=== PATIENT | male | born 1955 | race Caucasian/White ===

== ENCOUNTER 2020-09-02 08:54 | Outpatient (REF) | payer MEDICARE, SELFPAY ==
--- OUTSIDE RECORDS SUMMARY | 2020-09-02 09:04 | XMS_ITS ---
:1955 Author Allergies None recorded. Medications None recorded. Problems None recorded. Procedures None recorded. Results Lab Results None recorded. Past Encounters None recorded. Social History None recorded. Vaccine List Vaccine Type COVID-19, mRNA, LNP-S, PF, 100 mcg/0.5 m L dose 05/05/2020?0.5 mL 06/02/2020?100 mcg Plan of Care Reminders Provider Appointments None ? ? recorded. Lab None ? ? recorded. Referral None ? ? recorded. Procedures None ? ? recorded. Surgeries None ? ? recorded. Imaging None ? ? recorded. Vitals None recorded.
[2020-09-02 12:57] LABS: Hemoglobin A1C 5.6 % (<5.7)
[2020-09-02 12:58] LABS: ALT 17 U/L (16-63); AST 11 U/L (15-37); Albumin 3.8 g/dL (3.4-5.0); Alkaline Phosphatase 46 U/L (46-116); Anion Gap 9.4 mmol/L (3-11); BUN 18 mg/dL (7-18); Bilirubin, Total 0.7 mg/dL (0.2-1.0); CO2 24.6 mmol/L (21.0-32.0); CREATININE 0.9 mg/dL (0.70-1.30); Calcium 8.5 mg/dL (8.5-10.1); Calculated LDL 105 mg/dL (<100); Chloride 104 mmol/L (98-107); Cholesterol 163 mg/dL (<200); Glucose 105 mg/dL (74-106); HDL Cholesterol 46 mg/dL (40-60); Potassium 4.8 mmol/L (3.5-5.1); Sodium 138 mmol/L (136-145); Total Protein 6.5 g/dL (6.4-8.2); Triglyceride 63 mg/dL (<150)
[2020-09-02 21:54] LABS: PSA, Screening 0.9 ng/mL (0.0-4.5)
== END 2020-09-02 08:55 | disposition home or self-care (01) ==
LOC: LBN 08:54
PROVIDERS: PCP Nurse Practitioner Family; Visit Provider Nurse Practitioner Family
DX: R00.1 Bradycardia, unspecified (principal); M25.551 Pain in right hip; E78.89 Other lipoprotein metabolism disorders; R79.89 Other specified abnormal findings of blood chemistry; Z12.5 Encounter for screening for malignant neoplasm of prostate; Z00.00 Encounter for general adult medical examination without abnormal findings
CPT/HCPCS: 80053; 80061; 84153; 83036

== ENCOUNTER 2021-11-08 09:38 | Outpatient (CLI) | payer MEDICARE, SELFPAY ==
[2021-11-08 12:18] LABS: Abs Immature Grans 0.06 10^3/uL (0.0-0.06); Absolute Basophil Count 0.09 10^3/uL (0.0-0.2); Absolute Lymphocyte Count 2.02 10^3/uL (1.2-3.4); Basophils % 0.8; Eosinophils % 1.5; HCT 39.4 % (40.0-50.0); HGB 13.3 g/dL (13.5-17.5); Immature Grans % 0.5; Lymphocytes % 17.3; MCH 29.4 pg (27.0-33.0); MCHC 33.8 % (32.0-36.0); MCV 87 fL (80-95); MPV 9.7 fL (8.0-11.0); Monocytes % 8.6; Neutrophils % 71.3; Platelet Count 340 10^3/uL (130-400); RBC 4.52 10^6/uL (4.36-5.78); RDW 12.9 % (11.8-14.1); RDW-SD 41.1 fL; WBC 11.69 10^3/uL (4.4-10.8)
[2021-11-08 12:20] LABS: ESR 18 mm/hr (0-20)
[2021-11-08 12:22] LABS: Absolute Eosinophil Count 0.18 10^3/uL (0.0-0.7); Absolute Monocyte Count 1.01 10^3/uL (0.1-0.8); Absolute Neutrophil Count 8.33 10^3/uL (1.2-6.7)
[2021-11-08 12:28] LABS: C-Reactive Protein 21.73 mg/dL (0.0-0.3)
[2021-11-09 10:45] LABS: Lyme Ab w Rflx to Lyme Confirm Negative (Negative)
== END 2021-11-08 09:39 | disposition home or self-care (01) ==
LOC: LOS 09:39
PROVIDERS: PCP Nurse Practitioner Family; Visit Provider Family Medicine
DX: M25.50 Pain in unspecified joint (principal); R41.89 Other symptoms and signs involving cognitive functions and awareness; D64.9 Anemia, unspecified
CPT/HCPCS: 36415; 85652; 85025; 86140; 86618

== ENCOUNTER → 2021-11-09 14:12 | Outpatient (CLI) | payer MEDICARE, SELFPAY ==
--- NOTE | 2021-11-09 13:45 | DI.RAD_ITS ---
Exam(s) XR HIP RT COMPLETE AP PELVIS EXAM: XR HIP RT COMPLETE AP PELVIS CLINICAL HISTORY: rt hip pain M25.551. TECHNIQUE: 2D digital imaging was performed of the right hip. Three images were obtained. AP pelvis and lateral right hip views were obtained. COMPARISON: No exams were available for comparison FINDINGS: BONES: No acute fracture is present. No bony destructive lesion is seen. JOINTS: No dislocation present. Marked narrowing of the superior joint space of the right hip is note d. Mild subchondral sclerosis is seen on both sides of the right hip joint. There is mild spurring of the femoral head. SOFT TISSUE: Normal. IMPRESSION: Osteoarthritis of the right hip. DATA REPOSITORY: RADIATION DOSE DELIVERED:
== END ==
PROVIDERS: PCP Nurse Practitioner Family; Visit Provider Family Medicine
DX: M25.551 Pain in right hip (principal); M16.11 Unilateral primary osteoarthritis, right hip
CPT/HCPCS: 73502

== ENCOUNTER 2021-11-11 17:45 | Emergency (ER) | payer MEDICARE, SELFPAY ==
[2021-11-11 17:52] VITALS: BP 147/80; PULSE 64; RESP 20; TEMP 36.6; O2SAT 99
[2021-11-11 19:15] LABS: ESR 36 mm/hr (0-20)
[2021-11-11 19:18] LABS: Abs Immature Grans 0.06 10^3/uL (0.0-0.06); Absolute Basophil Count 0.09 10^3/uL (0.0-0.2); Absolute Eosinophil Count 0.17 10^3/uL (0.0-0.7); Absolute Lymphocyte Count 2.68 10^3/uL (1.2-3.4); Absolute Monocyte Count 0.85 10^3/uL (0.1-0.8); Absolute Neutrophil Count 5.03 10^3/uL (1.2-6.7); Eosinophils % 1.9; HCT 38.9 % (40.0-50.0); HGB 13.4 g/dL (13.5-17.5); Immature Grans % 0.7; Lymphocytes % 30.2; MCH 29.8 pg (27.0-33.0); MCHC 34.4 % (32.0-36.0); MCV 87 fL (80-95); MPV 8.8 fL (8.0-11.0); Monocytes % 9.6; Neutrophils % 56.6; Platelet Count 419 10^3/uL (130-400); RBC 4.49 10^6/uL (4.36-5.78); RDW 12.7 % (11.8-14.1); RDW-SD 40.4 fL; WBC 8.88 10^3/uL (4.4-10.8)
--- NOTE | 2021-11-11 19:24 | DI.CT_ITS ---
Exam(s) CT LOWER EXTREMITY RT WO EXAM: CT LOWER EXTREMITY RT WO CLINICAL HISTORY: hip pain, question septic hip/effusion?. TECHNIQUE: Imaging Protocol: Axial computed tomography images with coronal and sagittal reformatted images were created and reviewed. CONTRAST MATERIAL: None COMPARISON: CR XR HIP RT COMPLETE AP PELVIS from 11/09/2021 FINDINGS: OSSEOUS/ARTICULATION: No acute fractures evident. However, there are advanced osteoarthritic degener ative changes in the hip joint. Also prominent degenerative subarticular cyst in the anterosuperior acetabulum, this measuring approximately 1.7 by 1.4 cm. 7 x 7 millimeter degenerative subarticular c yst or possible synovial pit is seen in the anterior aspect of the femoral head. SOFT TISSUES: no joint effusion but there is fluid distending the ipsilateral psoas bursa. IMPRESSION: 1. Advanced degenerative change in the hip joint. No hip joint region fracture nor dislocation. 2. Fluid-filled iliopsoas bursa, either related to bursitis or abscess. RADIATION DOSE DELIVERED: 280.9mGy.cm Total DLP DATA REPOSITORY: All CT scans at this facility are submitted to the National Radiology Data Registry (NRDR) Dose Index Registry (DIR) with the [employer] (ACR). RADIATION OPTIMIZATION: All CT scans at this facility use at least one of these dose optimization te chniques: automated exposure control; mA and/or kV adjustment per patient size (includes targeted exa ms where dose is matched to clinical indication); or iterative reconstruction.
[2021-11-11 19:31] LABS: ALT 20 U/L (16-63); AST 15 U/L (15-37); Albumin 3.3 g/dL (3.4-5.0); Alkaline Phosphatase 101 U/L (46-116); Anion Gap 6.9 mmol/L (3-11); BUN 18 mg/dL (7-18); Bilirubin, Total 0.4 mg/dL (0.2-1.0); C-Reactive Protein 7.26 mg/dL (0.0-0.3); CO2 27.1 mmol/L (21.0-32.0); CREATININE 0.9 mg/dL (0.70-1.30); Calcium 8.6 mg/dL (8.5-10.1); Chloride 100 mmol/L (98-107); Estimated GFR 93.61 (mL/min/1.73m2); Glucose 93 mg/dL (74-106); Potassium 3.7 mmol/L (3.5-5.1); Sodium 134 mmol/L (136-145); Total Protein 7.7 g/dL (6.4-8.2)
--- NOTE | 2021-11-11 20:59 | DI.VRAD_ITS ---
Addendum created by Kely Fernández MD on 11/11/2021 9:02:31 PM EDT: THIS REPORT CONTAINS FINDINGS THAT MAY BE CRITICAL TO PATIENT CARE. The findings were verbally communicated via telephone conference with Sri Oropeza at 9:02 PM EDT on 11/11/2021. The findings were acknowledged and understood. An MRI with and without contrast was recommended. Initial report created on 11/11/2021 8:59:23 PM EDT: PROCEDURE INFORMATION: Exam: CT Right Lower Extremity Without Contrast, Hip Exam date and time: 11/11/2021 8:11 PM Age: 66 years old Clinical indication: Right; Patient HX: R hip pain, no trauma, question septic hip/effusion? TECHNIQUE: Imaging protocol: CT of the Right lower extremity without contrast was performed. Exam focused on the hip. Radiation optimization: All CT scans at this facility use at least one of these dose optimization techniques: automated exposure control; mA and/or kV adjustment per patient size (includes targeted exams where dose is matched to clinical indication); or iterative reconstruction. COMPARISON: CR XR HIP RT COMPLETE AP PELVIS 11/09/2021 3:15 PM FINDINGS: Bones/joints: No acute fracture identified. There are degenerative changes to the right hip with corresponding joint space narrowing, sclerosis, osteophytosis, and subchondral cyst formation. In some locations, there is bone on bone. Soft tissues: There are vascular calcifications. There appears to be a joint effusion communicating with the iliopsoas bursa on image 55 of series 3. Infected effusion is not excluded. Abscess is not excluded. An MRI with contrast would be beneficial for further evaluation. IMPRESSION: 1. No acute fracture or dislocation identified. 2. There appears to be a joint effusion communicating with the iliopsoas bursa on image 55 of series 3. Infected effusion is not excluded. Abscess is not excluded. An MRI with contrast would be beneficial for further evaluation. 3. Severe degenerative changes to the right hip as described. Other findings/details as above. Dictated and Authenticated by: Kely Fernández MD. Ordering:DEMETRIO Fierro MD
[2021-11-11 21:04] VITALS: BP 130/86; PULSE 61; RESP 18; TEMP 36.8; O2SAT 97
[2021-11-11 21:46] VITALS: BP 139/93; PULSE 66; RESP 16; TEMP 36.6; O2SAT 98
[2021-11-11] MEDS: Ketorolac 15 MG/ML VIAL IVP (22:01)
--- NOTE | 2021-11-11 22:29 | NUR.NOTE ---
Referral faxed to [facility] Josh Blackburn to f/u 11/14/21 for hip effusion.Nursing Note:
[2021-11-14 10:50] LABS: Lyme Ab w Rflx to Lyme Confirm Negative (Negative)
--- NOTE | 2021-11-14 22:01 | W.ED.GENAD ---
Discharge Plan Disposition Patient Disposition: HOME Condition: Stable Discharge Details Clinical Impression: Arthralgia, Effusion of hip Primary Care Provider: Josh Blackburn ED Provider: Sri Oropeza Home Meds and New Rx's Prescriptions: Continued prednisone 20 mg tablet 40 mg PO DAILY Qty: 10 0RF acetaminophen [Acetaminophen Extra Strength] 500 MG tablet 500 mg PO Q6H PRN PRNQty: 90 0RF ibuprofen 600 MG tablet 600 mg PO TID PRN PRNQty: 90 0RF Discharge Instructions Additional Instructions: Take Tylenol 650 mg every 4-6 hours as needed for pain Take the prednisone as prescribed by your doctor Follow-up with your PCP on Sunday and return here should you have fever over 100.4, worsening pain, or should he have new or worsening complaint You will need close outpatient reassessment Referrals: Josh Blackburn TEACHER ASST [Primary Care Provider] - Randall Gayle MD [ [facility]] - Discharge Data Discharge Date/Time-TO BE ENTERED AT DEPARTURE: 11/11/21 22:22 Medical Decision Making On CT scan, patient does have an effusion However CRP is improving and no leukocytosis and afebrile Patient is ambulatory with antalgic, steady gait Case was discussed with Dr. Gayle, on-call orthopedist his recommendations are supportive therapy with close outpatient reassessment with his PCP on Sunday At this time he sees no clear indication for arthrocentesis Patient is fairly afebrile and nontoxic My suspicion that this is septic arthritis is quite low I think the patient has viral syndrome with underlying osteoarthritis in the affected hip Similar very low threshold to return should you have new or worsening complaints and will need recheck in 24 to 48 hours Medical Records Medical records reviewed: Yes I reviewed the patient's medical records. Lab Data Lab results reviewed: Yes I reviewed the patient's lab results. HPI General Date/Time Provider Initiated Documentation: 11/11/21 17:47. HPI Narrative: This 66-year-old gentleman presents with fevers, night sweats, lymphadenopathy Progressed to swelling and pain in both arms then spreading to right hip. This is been going on for approximately 3 weeks. Denies IV drug abuse. Denies any known tick bites. He has not had a fever for the past 24 hours reportedly. He states that his right hip as his pain is exacerbated with walking. He denies any known sick contacts. He has had problems with his hip reportedly in the past. Denies rashes or lesions. Denies any falls or injuries. Describes the pain as sharp. Related Data Home Medications Medication Instructions Recorded Confirmed acetaminophen 500 mg tablet 500 mg PO Q6H PRN PRN #90 tabs 09/28/17 11/11/21 (Acetaminophen Extra Strength) ibuprofen 600 mg tablet 600 mg PO TID PRN PRN #90 tabs 09/28/17 11/11/21 prednisone 20 mg tablet 40 mg PO DAILY #10 tabs 11/09/21 11/11/21 Previous Rx's Medication Instructions Recorded acetaminophen 500 mg tablet 500 mg PO Q6H PRN PRN #90 tabs 09/28/17 (Acetaminophen Extra Strength) ibuprofen 600 mg tablet 600 mg PO TID PRN PRN #90 tabs 09/28/17 prednisone 20 mg tablet 40 mg PO DAILY #10 tabs 11/09/21 Allergies Allergy/AdvReac Type Severity Reaction Status Date / Time No Known Allergies Allergy Verified 11/11/21 17:56 General Stated Complaint: [facility] YARELI: 3 Review of Systems Narrative: Review of systems obtained x7 and negative aside from indication PFSH All Active Problems (Updated 11/11/21 @ 22:00 by NUVIA Rosa) Effusion of hip (Acute) Arthralgia (Acute) Right hip pain (Acute) Bradycardia with 51-60 beats per minute (Chronic) I do believe that this is his normal. Gastroesophageal reflux disease with esophagitis (Acute 01/14/16) Diverticulosis (Acute 11/24/13) [facility] [place] Contracture of joint of left hand (Acute 01/14/16) Medical History Flexor tendon laceration of left hand with open wound (09/26/17) Rupture of popliteal cyst of right knee region Surgical History Colonoscopy - [facility] [place] 11/24/13; [facility] [place] Family History Mother , 87 Essential hypertension Hyperlipidemia Father Neoplasm LUNG Sister Diabetes Hyperlipidemia Brother Essential hypertension Hyperlipidemia Maternal Grandfather , 58 Lung cancer Maternal Grandmother , 72 Stroke Sister Alcohol abuse Depression Social History Smoking/Tobacco Use Status: Former Tobacco Use tobacco type: cigarettes Quit Date: 03/05/84 Tobacco: How many years used: 5 Second Hand Exposure: Yes Smoking risk assessment performed?: Yes Alcohol Intake: current Alcohol Intake frequency: holidays/special occasions only Drug use: Never Caregiver/Support person: No Household members: spouse Housing: house Communication Needs: Corrective Lenses Do you need help understanding health information?: Rarely Pets and animals: No Sexually active: Yes Do you think of yourself as: straight/heterosexual Current gender identity: male What is your relationship status?: How often do you talk on the phone with friends or family?: three or more times per week How often do you get together with friends or relatives?: once per week How often do you attend jew or bahai services?: decline to answer Do you belong to any clubs or organized social groups?: no Panel score (0-1 are the most socially isolated patients): 2 What type of physical activity do you participate in: walking and other Details: Hiking Duration: 45-60 minutes/day Frequency: 3-4 times per week Special geovanna needs: No Seatbelt use: always Helmet use: Yes Helmet use: sometimes Drive intox or ride w/intox 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 Do you feel safe in your relationship?: Yes Exam Const General: cooperative, comfortable and no acute distress HENMT Head: normal to inspection Eyes Sclera: sclerae normal Neck Other: No meningismus Resp Effort & Inspection: normal respiratory effort Auscultation: clear to auscultation bilaterally Cardio Rate: regular rate Rhythm: regular rhythm Other: Distal pulses intact GI Other: Nontender abdominal exam Skin General skin exam: no rashes or lesions noted Neuro General: patient alert and patient oriented x3 Cognition: normal cognition Speech: speech normal Gait: normal gait Sensory Exam: no sensory deficits noted Extrem Other: Right hip with tenderness to palpation and with abduction and internal rotation, no swelling or rashes or lesions appreciated Neurovascularly intact Course Vital Signs Vital signs: Vital Signs Temperature 36.6 C 11/11/21 17:52 Pulse 64 11/11/21 17:52 Respiratory Rate 20 11/11/21 17:52 Blood Pressure 147/80 H 11/11/21 17:52 Pulse Oximetry 99 11/11/21 17:52 Temperature 36.6 C 11/11/21 21:46 Temperature Source Oral 11/11/21 21:46 Pulse 66 11/11/21 21:46 Respiratory Rate 16 11/11/21 21:46 Respiratory Effort 11/11/21 19:36 Blood Pressure 139/93 H 11/11/21 21:46 Blood Pressure Position Sitting 11/11/21 17:52 Pulse Oximetry 98 11/11/21 21:46 Oxygen Delivery Method Room Air 11/11/21 21:46 Oxygen Flow Rate 0 11/11/21 21:46 Pain Level 2 11/11/21 22:01 Comment 11/11/21 21:46 Lab/Test Results Lab/Test Results: Laboratory Tests Range/Units 11/11/21 11/11/21 11/11/21 19:05 19:05 19:05 WBC (4.4-10.8) 10^3/uL 8.88 RBC (4.36-5.78) 10^6/uL 4.49 Hgb (13.5-17.5) g/dL 13.4 L Hct (40.0-50.0) % 38.9 L MCV (80-95) fL 87 MCH (27.0-33.0) pg 29.8 MCHC (32.0-36.0) % 34.4 RDW (11.8-14.1) % 12.7 Plt Count (130-400) 10^3/uL 419 H MPV (8.0-11.0) fL 8.8 Immature Gran % 0.7 Neutrophils % 56.6 Lymphocytes % 30.2 Monocytes % 9.6 Eosinophils % 1.9 Basophils % 1.0 Nucleated RBC % (0.0-0.3) % 0.0 Absolute Neutrophils (1.2-6.7) 10^3/uL 5.03 Absolute Lymphocytes (1.2-3.4) 10^3/uL 2.68 Absolute Monocytes (0.1-0.8) 10^3/uL 0.85 H Absolute Eosinophils (0.0-0.7) 10^3/uL 0.17 Absolute Basophils (0.0-0.2) 10^3/uL 0.09 ESR (0-20) mm/hr 36 H Sodium (136-145) mmol/L 134 L Potassium (3.5-5.1) mmol/L 3.7 Chloride (98-107) mmol/L 100 Carbon Dioxide (21.0-32.0) mmol/L 27.1 Anion Gap (3-11) mmol/L 6.9 BUN (7-18) mg/dL 18 Creatinine (0.70-1.30) mg/dL 0.9 Est GFR (CKD-EPI 2020) (mL/min/1.73m2) 93.61 Glucose (74-106) mg/dL 93 Calcium (8.5-10.1) mg/dL 8.6 Total Bilirubin (0.2-1.0) mg/dL 0.4 AST (15-37) U/L 15 ALT (16-63) U/L 20 Alkaline Phosphatase (46-116) U/L 101 C-Reactive Protein (0.0-0.3) mg/dL 7.26 H Total Protein (6.4-8.2) g/dL 7.7 Albumin (3.4-5.0) g/dL 3.3 L Lyme Disease Antibody (Negative) Range/Units 11/11/21 19:05 WBC (4.4-10.8) 10^3/uL RBC (4.36-5.78) 10^6/uL Hgb (13.5-17.5) g/dL Hct (40.0-50.0) % MCV (80-95) fL MCH (27.0-33.0) pg MCHC (32.0-36.0) % RDW (11.8-14.1) % Plt Count (130-400) 10^3/uL MPV (8.0-11.0) fL Immature Gran % Neutrophils % Lymphocytes % Monocytes % Eosinophils % Basophils % Nucleated RBC % (0.0-0.3) % Absolute Neutrophils (1.2-6.7) 10^3/uL Absolute Lymphocytes (1.2-3.4) 10^3/uL Absolute Monocytes (0.1-0.8) 10^3/uL Absolute Eosinophils (0.0-0.7) 10^3/uL Absolute Basophils (0.0-0.2) 10^3/uL ESR (0-20) mm/hr Sodium (136-145) mmol/L Potassium (3.5-5.1) mmol/L Chloride (98-107) mmol/L Carbon Dioxide (21.0-32.0) mmol/L Anion Gap (3-11) mmol/L BUN (7-18) mg/dL Creatinine (0.70-1.30) mg/dL Est GFR (CKD-EPI 2020) (mL/min/1.73m2) Glucose (74-106) mg/dL Calcium (8.5-10.1) mg/dL Total Bilirubin (0.2-1.0) mg/dL AST (15-37) U/L ALT (16-63) U/L Alkaline Phosphatase (46-116) U/L C-Reactive Protein (0.0-0.3) mg/dL Total Protein (6.4-8.2) g/dL Albumin (3.4-5.0) g/dL Lyme Disease Antibody (Negative) Negative
[2021-11-16 22:51] LABS: Anaplasma phagocytophilum Negative (Negative); B. miyamotoi PCR Negative (Negative); Babesia divergens/MO-1 Negative (Negative); Babesia duncani Negative (Negative); Babesia microti Negative (Negative); Ehrlichia chaffeensis Negative (Negative); Ehrlichia ewingii/canis Negative (Negative); Ehrlichia muris eauclairensis Negative (Negative)
== END 2021-11-11 22:22 | disposition home or self-care (01) ==
PROVIDERS: Emergency Provider Physician Assistant; PCP Nurse Practitioner Family
DX: M25.551 Pain in right hip (principal); M25.451 Effusion, right hip; Z87.891 Personal history of nicotine dependence
CPT/HCPCS: 80053; 85652; 87798; 96374; 99284; 73700; 85025; 86140; 86618; J1885

== ENCOUNTER → 2021-12-08 14:57 | Outpatient (CLI) | payer MEDICARE, SELFPAY ==
--- NOTE | 2021-12-08 15:20 | DI.RAD_ITS ---
Exam(s) RF JOINT INJECTION FLUORO GUID EXAM: RF JOINT INJECTION FLUORO GUID CLINICAL HISTORY: R HIP ASPIRATION, R/O infection, rt hip pain, effusion,m25.551, m25.459 TECHNIQUE: 2D and realtime digital imaging was performed. COMPARISON: No exams were available for comparison FINDINGS: Fluoroscopy is utilized by Dr. Merida during right hip injection. Hard copy shows injection in the right hip joint. IMPRESSION: RADIATION DOSE DELIVERED: ethan Arnett=0.38 mGy Total DLP
[2021-12-08] MEDS: Bupivacaine 0.5% Pres-Free 10 ML VIAL 5 ML IJ (15:42)
[2021-12-08] MEDS: methylPREDNISolone ACETATE 80 MG/ML VIAL IM (15:42)
[2021-12-08] MEDS: Omnipaque 300 MG/ML 10 ML BTL IJ (15:43)
--- NOTE | 2021-12-08 17:47 | OPPNE_ITS ---
Date of service: 12/08/21 Time of Service: 15:20 Procedure Note Date of procedure: 12/08/21 Procedure: Right Hip Injection with Fluoroscopic Guidance Surgeon/Proceduralist/Physician: Odin Merida Procedure Diagnosis: Right Hip Osteoarthritis Procedure Indications: Brandon has had persistent pain of the RIGHT hip and groin. He has had known arthritis of the right hip but this has been intervally worse over the last month or so. It is also corresponded with recurrent fevers and chills which do not have a source at this time. I was contacted by his primary care team with concern for potential right hip infection given his persistence of pain about the right hip and fever of unknown origin. Therefore, I recommended a hip aspiration and if negative, hip injection, to serve as both diagnostic and therapeutic. I had discussed the risks of the procedure and the patient elected to proceed. Procedure Description: Brandon was greeted in the flouroscopy room. The correct side was identified and the consent was reviewed with the patient and signed. The patient was then placed in the supine position on the fluoroscopy table. The RIGHT hip was then prepped with Chloraprep. The anterolateral injection starting point was identiifed by bony landmarks and fluoroscopy. The skin and soft tissue in the tract of the injection was anesthetized with 1% Lidocaine. A spinal needle was then inserted deep into the hip joint at the level of the lateral femoral neck under fluoroscopic guidance. I was only able to obtain a few drops of normal- appearing synovial fluid. I did reposition the needle into 3 various locations to confirm intra-articular placement yet with only a few drops of normal- appearing joint fluid. A small amount of Omnipaque solution was injected to confirm intraarticular placement. Given that there is no purulence and no significant fluid about the right hip, I proceeded with the injection. The hip was injected with 5cc of 0.5% Bupivicaine and 80mg of Depo-Medrol. A bandaid was placed on the injection site. The patient tolerated the procedure well and noted improvement in pre-injection pain.
== END ==
PROVIDERS: PCP Nurse Practitioner Family; Visit Provider Student in an Organized Health Care Education/Training Program
DX: M25.451 Effusion, right hip (principal); M25.551 Pain in right hip
CPT/HCPCS: 20610; 77002; J1040

== ENCOUNTER 2022-10-05 03:29 | Outpatient (CLI) | payer MEDICARE, SELFPAY ==
--- NOTE | 2022-10-05 14:37 | DI.RAD_ITS ---
Exam(s) RF JOINT INJECTION FLUORO GUID EXAM: RF JOINT INJECTION FLUORO GUID CLINICAL HISTORY: R HIP PAIN, M25.551,. TECHNIQUE: 2D and realtime digital imaging was performed. Fluoroscopy was provided for Dr. Merida for guidance with performing a hip injection. COMPARISON: No exams were available for comparison FINDINGS: Please see procedure note for details. Fluoro time: 5seconds RADIATION DOSE DELIVERED: Ka,r=0.36 mGy
[2022-10-05] MEDS: methylPREDNISolone ACETATE 80 MG/ML VIAL IM (14:47)
[2022-10-05] MEDS: Omnipaque 300 MG/ML 10 ML BTL IJ (14:48)
[2022-10-05] MEDS: Bupivacaine 0.5% Pres-Free 10 ML VIAL 5 ML IJ (14:50)
--- NOTE | 2022-10-05 16:05 | W.PROCNOTE ---
Date of service: 10/05/22 Time of Service: 14:40 Procedure Note Date of procedure: 10/05/22 Procedure: Right Hip Injection with Fluoroscopic Guidance Surgeon/Proceduralist/Physician: Odin Merida Procedure Diagnosis: Right Hip Osteoarthritis Procedure Indications: Brandon has had persistent pain of the RIGHT hip and groin. Noninvasive measures have been tried, including previous injection with good results. Therefore, an injection under fluoroscopy was recommended. I had discussed the risks of the procedure and the patient elected to proceed. Procedure Description: Brandon was greeted in the flouroscopy room. The correct side was identified and the consent was reviewed with the patient and signed. The patient was then placed in the supine position on the fluoroscopy table. The RIGHT hip was then prepped with Chloraprep. The anterolateral injection starting point was identiifed by bony landmarks and fluoroscopy. The skin and soft tissue in the tract of the injection was anesthetized with 1% Lidocaine. A spinal needle was then inserted deep into the hip joint at the level of the lateral femoral neck under fluoroscopic guidance. A small amount of Omnipaque solution was injected to confirm intraarticular placement. Once confirmed, the hip was injected with 5cc of 0.5% Bupivicaine and 80mg of Depo-Medrol. A bandaid was placed on the injection site. The patient tolerated the procedure well and noted improvement in pre-injection pain.
== END 2022-10-05 03:49 ==
PROVIDERS: PCP Nurse Practitioner Family; Visit Provider Student in an Organized Health Care Education/Training Program
DX: M25.551 Pain in right hip (principal)
CPT/HCPCS: 20610; 77002; J1040

== ENCOUNTER → 2023-01-29 08:49 | Outpatient (BNVA) | payer MEDICARE, SELFPAY | PROVIDERS: PCP Nurse Practitioner Family; Referring Provider Nurse Practitioner Family; Visit Provider Surgery | DX: K40.90 Unilateral inguinal hernia, without obstruction or gangrene, not specified as recurrent (principal); R00.1 Bradycardia, unspecified; Z87.11 Personal history of peptic ulcer disease | CPT/HCPCS: 99214; 99215 ==

== ENCOUNTER 2023-03-16 09:38 | Day surgery (SDC) | payer MEDICARE, SELFPAY ==
--- NOTE | 2023-03-15 18:35 | W.PM.DSUDISC ---
Date of service: 03/16/23 Time of Service: 11:44 Discharge Plan Disposition Patient Disposition: Home Condition: Good Discharge Details Reason For Visit: Left inguinal hernia repair Attending Provider: Aayush Zarate Primary Care Provider: Josh Blackburn Home Meds and New Rx's Prescriptions: New tramadol 50 mg tablet 50 mg PO Q8H PRNQty: 12 0RF Rx Instructions: Tke one tablet by mouth up to every 8 hours if needed for pain Continued meloxicam 15 mg tablet 15 mg PO DAILY Discharge Instructions Instructions: Inguinal Hernia Repair (GEN) Additional Instructions: Brandon, we were able to repair your inguinal hernia today without any issues. Everything went very smoothly. Hopefully, this repair will provide some relief, and move you along towards your other operations. I would expect some bruising in the days to come, so please do not be alarmed if you notice that. I have attached some basic information, as well as some below with regards to what else to expect in the coming days. I also provided a prescription for a medication called tramadol if the Tylenol and ibuprofen are not enough to control your pain. If you have any questions in the meantime, please do not hesitate to call at any point, otherwise, I look forward to seeing you in the office for routine follow-up. 1. Resume all of your medications. 2. Use heating pads and ice packs over the incision as needed for pain. 3. Okay to use tylenol and ibuprofen over the counter as needed. Use [] as needed for pain 4. Leave bandage in place for 24 hours, then remove. 5. Shower with warm soapy water. Pat dry. Use a bandaid if needed to protect your clothing. 6. No soaking or tub baths until I see you in the office. 7. No heavy lifting until I see you in the office. 8. Call the office (or go directly to the emergency room after hours) if you notice any of the following: Develop chills (warm to touch), or if you have a thermometer and your temperature is above 101 Difficulty breathing or difficultly swallowing Persistent vomiting Any bleeding ? exceeding one tablespoon 9. Call your physician if the site where your intravenous was started becomes red, swollen, painful, and warm to touch. Activity:: Activity as Tolerated Diet:: As Tolerated Discharge Orders Discharge Orders: Discharge Order (Routine); Ordered 03/15/23 Ordered By: Aayush Zarate DS: Diagnosis Discharge Diagnosis (1) Left inguinal hernia: Status: Acute Asessment and Plan: Outpatient postoperative follow-up
--- NOTE | 2023-03-15 18:37 | ROE_ITS ---
Date of service: 03/16/23 Time of Service: 13:00 Operative Note Operative Note DATE OF PROCEDURE: 03/16/23 PRE-OP DIAGNOSIS: Left inguinal hernia POST-OP DIAGNOSIS: same PROCEDURE: Open left inguinal hernia repair with mesh SURGEON: Aayush Zarate INTERNAL COMBUSTION ENGINE INSPECTOR: Elizabeth Mcgee ANESTHESIA TYPE: Local By Surgeon (Left-sided tap block) and General LMA/ETT Refer to Anesthesia Record ESTIMATED BLOOD LOSS: 5 PATHOLOGY: none sent COMPLICATIONS: None Patient was transported to: PACU Patient's condition: stable Implants: Bard PerFix light plug and patch Indications: Brandon is a 67 year old man with an enlarging left inguinal hernia. Procedure Description: I began by confirming the correct site with the patient. Next, after induction of general anesthesia, left-sided inguinal region was blocked with real-time ultrasound guidance by the anesthesia team. The surgical site was then prepped and draped in the usual fashion. I began by making an oblique incision over the left inguinal region. I dissected down through the skin to the deep fascia. Next, I incised the fascia along the length of the inguinal canal to the external ring. I then carefully identified the ilioinguinal nerve and sharply divided. Once this was complete, I bluntly dissected the shelving edge of the inguinal ligament down towards the pubic tubercle. Here, I encircled all cord structures with a [place] drain. Next, I began dissecting the specific cord structures. Great care was taken to spare the vas deferens and the blood supply to the testicle. Next, I isolated the hernia sac from the other inguinal structures. I reduced it back to its normal anatomic position. I then used a large PerFix light mesh plug to obliterate the defect at the internal ring. I fixed in place with interrupted Prolene stitches. Next, I buttressed the cell tender helper ior floor of the inguinal canal with a large mesh patch. I started by fixing it to the pubic tubercle. Next, I used Prolene sutures to affix it to the shelving edge of the inguinal ligament and the conjoined tendon. Laterally I tacked it to the internal oblique fascia and reconstructed an internal ring without any strain on the cord structures. Once this was complete, I irrigated the surgical field. It appeared hemostatic. I then closed the anterior portion of the fascia to reconstruct the front wall of the inguinal canal. I did this with interrupted Vicryl stitches. Once again, I irrigated the surgical field and inspected for hemostasis. Finally, I approximated the superficial fascia and the deep layers of the skin with absorbable suture. Skin was closed with running subcuticular stitches. Bandages were applied, the patient was awakened and transferred to the recovery unit.
--- NOTE | 2023-03-15 18:39 | W.PREOPHP ---
Assessment and Plan Assessment and plan (1) Left inguinal hernia: Status: Acute Assessment and plan: We reviewed the plan for left inguinal hernia repair with a permanent mesh today, as well as the risks and the benefits of the operation. I explaied the nature of the operation and the anticipated recovery. History of Present Illness History of Present Illness Chief Complaint: Left inguinal bulge Narrative: Brandon is a 67 year old man. 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 He is quite active and has noticed a bulge in the left groin that became most notable in August. The bulge has increased in size and has become increasingly uncomfortable with certain activites. He is also having some osteoarthritic changes of the right hip, and plans to undergo right hip repair. Therefore, he like the hernia repaired in effort to prehab and optimize her recovery from his right hip replacement. [facility] All Active Problems Left inguinal hernia (Acute) Right hip pain (Acute) Bradycardia with 51-60 beats per minute (Chronic) I do believe that this is his normal. Diverticulosis (Acute 11/24/13[place] [facility] [place] History History of peptic ulcer disease Fever of unknown origin Rupture of popliteal cyst of right knee region Gastroesophageal reflux disease with esophagitis (01/14/16) Flexor tendon laceration of left hand with open wound (09/26/17) Contracture of joint of left hand (01/14/16) Surgical History Colonoscopy - MAC 11/24/13; [facility] [place] Family History Mother , 87 Essential hypertension Hyperlipidemia Father Neoplasm LUNG Sister Diabetes Hyperlipidemia Brother Essential hypertension Hyperlipidemia Maternal Grandfather , 58 Lung cancer Maternal Grandmother , 72 Stroke Sister Alcohol abuse Depression Social History Smoking/Tobacco Use Status: Former Tobacco Use tobacco type: cigarettes Quit Date: 03/05/84 Tobacco: How many years used: 5 Second Hand Exposure: Yes Smoking risk assessment performed?: Yes Alcohol Intake: current Alcohol Intake frequency: holidays/special occasions only Drug use: Never Substance use type: does not use Caregiver/Support person: No Household members: spouse Housing: house Communication Needs: Corrective Lenses Do you need help understanding health information?: Rarely Pets and animals: No Sexually active: Yes Do you think of yourself as: straight/heterosexual Current gender identity: male What is your relationship status?: How often do you talk on the phone with friends or family?: three or more times per week How often do you get together with friends or relatives?: once per week How often do you attend latter-day or sikhism services?: decline to answer Do you belong to any clubs or organized social groups?: no Panel score (0-1 are the most socially isolated patients): 2 What type of physical activity do you participate in: walking and other Details: Hiking Duration: 45-60 minutes/day Frequency: 3-4 times per week Special geovanna needs: No Seatbelt use: always Helmet use: Yes Helmet use: sometimes Drive intox or ride w/intox driver/refuse collector: No Do you feel safe at home: Yes Do you feel safe in your relationship?: Yes Meds Allergies and Home Medications Allergies Allergy/AdvReac Type Severity Reaction Status Date / Time No Known Allergies Allergy Verified 03/16/23 10:03 Home Medications Medication Instructions Recorded Confirmed Type meloxicam 15 mg tablet 15 mg PO DAILY 01/29/23 03/15/23 History Exam Const General: cooperative, healthy appearing and not in acute distress Neck Neck: normal visual inspection, no lymphadenopathy and supple Thyroid: thyroid normal Resp Effort & Inspection: normal respiratory effort Auscultation: clear to auscultation bilaterally Cardio Jugular venous pressure: no JVD Rate: regular rate Rhythm: regular rhythm Heart Sounds: S1 normal and S2 normal GI Inspection: normal to inspection Palpation: soft, no guarding, hernia (Reducible left inguinal hernia) and nontender Percussion: normal to percussion Auscultation: normal bowel sounds Neuro General: patient alert, patient awake and patient oriented x3 Psych Appearance: grossly normal
[2023-03-16] VITALS (9 sets, daily range): BP systolic 97–131; BP diastolic 62–86; PULSE 52–69; RESP 15–18; TEMP 36.5–36.8; O2SAT 94–98; BMI 28.8
--- NOTE | 2023-03-16 09:35 | W.ANESPRE ---
General Info Date of Service Date Performed: 03/16/23 Height: 5 ft 8 in Weight: 86.183 kg Body Mass Index (BMI): 28.8 Surgical Procedure: Operation Date: 03/16/23 11:25 Proposed Procedure Side Surgeon p Herniorrhaphy Inguinal w/Mesh Left Aayush Zarate MD Meds Allergies and Home Medications Allergies Allergy/AdvReac Type Severity Reaction Status Date / Time No Known Allergies Allergy Verified 03/16/23 10:03 Home Medication Medication Instructions Recorded meloxicam 15 mg tablet 15 mg PO DAILY 01/29/23 Current Visit Medications: Current Medications Generic Name Dose Route Start Last Admin Trade Name Freq PRN Reason Stop Dose Admin Ringer's Solution 1,000 mls @ 80 mls/hr 03/16/23 06:00 IV 03/16/23 23:59 INFUSION DALE Cefazolin Sodium/Dextrose 2 gm in 50 mls @ 100 mls/hr 03/16/23 06:00 Ancef Duplex IVPB 03/16/23 23:59 PREOP DALE IV Miscellaneous Supplies 1 each 03/16/23 06:00 Iv Access IV 03/16/23 23:59 DIRECTED DALE Morphine Sulfate 2 mg 03/15/23 18:42 Morphine 4 Mg/Ml Syr IVP 04/14/23 18:41 Q1H PRN PRN Sodium Chloride 0 ml 03/16/23 06:00 Normal Saline Flush 10 Ml Syr IV 03/16/23 23:59 PRN PRN Sodium Chloride 0 ml 03/16/23 06:00 Normal Saline 10 Ml Vial IJ 03/16/23 23:59 DIRECTED PRN Sterile Water 0 ml 03/16/23 06:00 Water,Injection,Sterile 10 Ml Vial IJ 03/16/23 23:59 DIRECTED PRN Tramadol HCl 100 mg 03/15/23 18:42 Tramadol 50 Mg Tab PO 04/14/23 18:41 Q6H PRN PRN Pain PFSH Active Problems Active Problems: Problem Status Onset Code Left inguinal hernia K40.90 Right hip pain M25.551 Bradycardia with 51-60 beats per minute R00.1 Diverticulosis 11/24/13 K57.90 Medical History Medical History History of peptic ulcer disease Fever of unknown origin Rupture of popliteal cyst of right knee region Gastroesophageal reflux disease with esophagitis (01/14/16) Flexor tendon laceration of left hand with open wound (09/26/17) Contracture of joint of left hand (01/14/16) Surgical History Surgical [place] [facility] [place] Smoking/Tobacco Use Status: Former Tobacco Use Passive smoking exposure: No Second hand exposure: Yes Alcohol Alcohol Intake: current Alcohol intake frequency: holidays/special occasions only Substance Use Substance use: Never Substance use type: does not use Vital Signs and Lab Results Vital Signs Most Recent Vital Signs in EMR: Temp Pulse Resp BP Pulse Ox 36.6 C 66 16 131/86 97 03/16/23 10:06 03/16/23 10:06 03/16/23 10:06 03/16/23 10:06 03/16/23 10:06 Lab Results Blood Type / Crossmatch: No Data to Display Complete Blood Count: No Data to Display Complete Metabolic Panel: No Data to Display Liver Function Panel: No Data to Display Coagulation Panel: No Data to Display Cardiac Panel: No Data to Display Arterial Blood Gas: No Data to Display Venous Blood Gas: No Data to Display Pancreas Panel: No Data to Display Thyroid Panel: No Data to Display Infectious Disease: No Data to Display Blood Cultures: No Data to Display Toxicology Panel: No Data to Display Anesthesia Assessment and Plan Anesthesia History Personal History: No History of Anesthesia Complications Family History: No Family History of Anesthesia Complications Exercise Tolerance Exercise Tolerance: Metabolic Equivalents>4 Cardiac & Pulmonary Exam Cardiac Exam: Normal S1/S2 Heart Sounds Pulmonary Exam: Clear Bilateral Breath Sounds Implantable Cardiac Device Does patient have a Pacemaker or an ICD?: No Airway Exam Known Difficult Airway: No Mallampati Class: 2 Mouth Opening: Normal (> 3cm) Thyromental Distance: Greater than 3 cm Neck Range of Motion: Full ROM Neck Circumference: Normal Teeth Condition: Normal Dentition ASA Classification ASA Score: ASA 2 Emergency Case?: No NPO Status NPO Status: NPO Clears >2 hours, Solids >8 hours Anesthesia Plan Resuscitation Status: Full Code Anesthesia Technique: General Anesthesia Airway Planned: LMA Pain Management: Surgeon and patient request nerve block Monitors Used: Standard Monitors Preoperative Comments:: 67 yo male for hernia repair. Sig PMHx: GERD (no meds, diet related), former smoker, occ EtOH. Previous Anes: - tendon repair, mid, prop, natural airway, no issues.
[2023-03-16] MEDS: Lactated Ringers 1,000 ML 80 ML IV (10:37)
[2023-03-16] MEDS: Celecoxib 200 MG CAP PO (10:45)
[2023-03-16] MEDS: Acetaminophen 500 MG TAB 1000 MG PO (10:45)
[2023-03-16] MEDS: Gabapentin 300 MG CAP 600 MG PO (10:45)
[2023-03-16] MEDS: ceFAZolin 2 GM/50 ML BAG IVPB (11:49)
--- NOTE | 2023-03-16 12:10 | W.ANESNERVE ---
Nerve Block Single Injection Procedure Date and Time Date Performed: 03/16/23 Procedure Start: 11:57 Location Where Procedure Performed Procedure Location: Operating Room Procedure Stop: 12:00 Reason Performed: Postoperative Analgesia Requesting Provider: Aayush Zarate Timeout Performed Timeout Performed: Yes Monitoring Used ECG, Blood Pressure, SpO2 and ETCO2 Sterility Sterility: Hand Hygiene, Surgical Cap, Surgical Mask, Sterile Gloves and Chlorhexidine Sedation Given During Procedure Sedation Given (Indicate Dose Given): No Sedation given Patient Mental Status Patient Mental Status: Performed under general anesthesia Nerve Block 1st Nerve Block: Laterality: Left Block Type: TAP Unilateral Ultrasound Image Saved?: Yes Needle / Catheter Used: 100mm SonoPlex II Local Anesthetic Bolus (Indicate Dose Given): Bupivacaine 0.375% Dose:: 10 mL Additives (Indicate Dose Given): Epinephrine to make 1:400,000 (2.5mcg/ml) Dose:: 25 mcg and Precedex Dose:: 26 mcg Ultrasound: Sterile probe cover and gel used Nerve Stimulator: Not Used Paresthesia: None Procedure Tolerated: No Complications Procedure Outcome: Successful Performed By: Franko Tripathi
[2023-03-16] MEDS: Bupivacaine 0.25% Pres-Free 30 ML VIAL (13:05)
--- NOTE | 2023-03-16 14:11 | W.ANESPOSTOP ---
Postoperative Evaluation Date, Time and Location Date Performed: 03/16/23 Time Performed: 14:11 Patient Location: Day Surgery Unit Vital Signs Most Recent Imported Vital Signs: Most Recent Vital Signs Temp Pulse Resp BP Pulse Ox 36.8 C 58 L 16 128/79 94 03/16/23 14:01 03/16/23 14:01 03/16/23 14:01 03/16/23 14:01 03/16/23 14:01 Pain Score Most Recent Pain Score: Most Recent Pain Score Pain Level 0 03/16/23 14:01 Assessment Mental Status: Awake (Alert & Oriented to Patient Baseline) Airway and Respiratory Function: Patent airway with normal (patient baseline) respiratory exam Cardiovascular Function: Hemodynamically Stable Hydration Status: Adequately Hydrated Nausea & Vomiting: No Nausea or Vomiting Pain: Pain is tolerable per patient Peripheral Nerve Block: Patient did not receive a nerve block
== END 2023-03-16 15:12 | disposition home or self-care (01) ==
PROVIDERS: PCP Nurse Practitioner Family; Visit Provider Surgery
PROC: (CPT 49505; principal; 2023-03-16 11:15)
DX: K40.90 Unilateral inguinal hernia, without obstruction or gangrene, not specified as recurrent (principal); M16.11 Unilateral primary osteoarthritis, right hip; R00.1 Bradycardia, unspecified; Z87.11 Personal history of peptic ulcer disease; Z87.891 Personal history of nicotine dependence
CPT/HCPCS: 49505; 76942; C1781; J0171; J0665; J0690; J1100; J1885; J2405; J2704; J3475

== ENCOUNTER → 2023-03-29 14:16 | Outpatient (BNVA) | payer MEDICARE, SELFPAY | PROVIDERS: PCP Nurse Practitioner Family; Referring Provider Nurse Practitioner Family; Visit Provider Physical Therapy Assistant | DX: Z48.817 Encounter for surgical aftercare following surgery on the skin and subcutaneous tissue (principal) ==

== ENCOUNTER 2023-05-07 08:42 | Outpatient (CLI) | payer MEDICARE, SELFPAY ==
--- NOTE | 2023-05-07 08:30 | RT.EKG_ITS ---
APPROVED REPORT Exam: Resting ECG Reason for Exam: pre op Patient Location: O HR:50 bpm ECG Measurements Heart Rate 50 AXIS OK 157 P 49 QRSd 140 QRS -27 QT 461 T 25 QTc 421 Conclusion Sinus rhythm...normal P axis, V-rate 50- 99 Right bundle branch block...QRSd>120, terminal axis(90,270)
== END 2023-05-07 08:43 | disposition home or self-care (01) ==
LOC: DI.CM 08:43
PROVIDERS: PCP Nurse Practitioner Family; Visit Provider Nurse Practitioner Family
DX: Z01.818 Encounter for other preprocedural examination (principal)
CPT/HCPCS: 93010

== ENCOUNTER 2023-11-13 02:38 | Outpatient (CLI) | payer MEDICARE, SELFPAY ==
[2023-11-13 16:11] LABS: Anion Gap 5.3 mmol/L (3-11); BUN 16 mg/dL (7-18); CO2 29.7 mmol/L (21.0-32.0); CREATININE 1.1 mg/dL (0.70-1.30); Calcium 8.9 mg/dL (8.5-10.1); Calculated LDL 86 mg/dL (<100); Chloride 100 mmol/L (98-107); Cholesterol 149 mg/dL (<200); Estimated GFR 72.67 (mL/min/1.73m2); Glucose 87 mg/dL (74-106); HDL Cholesterol 52 mg/dL (40-60); Potassium 4.7 mmol/L (3.5-5.1); Sodium 135 mmol/L (136-145); Triglyceride 56 mg/dL (<150)
[2023-11-13 22:47] LABS: PSA, Screening 1.3 ng/mL (<=4.5)
== END 2023-11-13 02:39 | disposition home or self-care (01) ==
LOC: LBO 02:38
PROVIDERS: PCP Nurse Practitioner Family; Visit Provider Nurse Practitioner Family
DX: Z13.6 Encounter for screening for cardiovascular disorders (principal); Z13.1 Encounter for screening for diabetes mellitus; Z12.5 Encounter for screening for malignant neoplasm of prostate
CPT/HCPCS: 36415; 80048; 80061; 84153

== ENCOUNTER 2024-05-08 15:23 | Outpatient (CLI) | payer MEDICARE, SELFPAY ==
--- NOTE | 2024-05-08 15:15 | RT.EKG_ITS ---
APPROVED REPORT Exam: Resting ECG Reason for Exam: Pre op Exam Patient Location: O HR:67 bpm ECG Measurements Heart Rate 67 AXIS IN 162 P 56 QRSd 141 QRS -41 QT 432 T 39 QTc 456 Conclusion Sinus rhythm...normal P axis, V-rate 50- 99 RBBB and LAFB...QRSd >120mS, axis(-40,240)
== END 2024-05-08 15:24 | disposition home or self-care (01) ==
LOC: DI.CM 15:25
PROVIDERS: PCP Nurse Practitioner Family; Visit Provider Nurse Practitioner Family
DX: Z01.818 Encounter for other preprocedural examination (principal)
CPT/HCPCS: 93010

== ENCOUNTER 2024-05-08 21:50 | Outpatient (REF) | payer MEDICARE, SELFPAY ==
[2024-05-08 22:29] LABS: MRSA PCR Negative (Negative)
== END 2024-05-08 21:51 | disposition home or self-care (01) ==
LOC: LBN 21:50
PROVIDERS: PCP Nurse Practitioner Family; Visit Provider Nurse Practitioner Family
DX: Z01.818 Encounter for other preprocedural examination (principal); I45.2 Bifascicular block
CPT/HCPCS: 87641

== ENCOUNTER 2024-05-14 07:45 | Outpatient (CLI) | payer MEDICARE, SELFPAY ==
[2024-05-14 07:30] LABS: HCT 43.8 % (40.0-50.0); HGB 14.7 g/dL (13.5-17.5); MCH 29.1 pg (27.0-33.0); MCHC 33.6 % (32.0-36.0); MCV 87 fL (80-95); MPV 8.9 fL (8.0-11.0); Platelet Count 293 10^3/uL (130-400); RBC 5.06 10^6/uL (4.36-5.78); RDW 12.9 % (11.8-14.1); RDW-SD 40.5 fL; WBC 6.85 10^3/uL (4.4-10.8)
[2024-05-14 08:18] LABS: Albumin 3.6 g/dL (3.4-5.0); Anion Gap 5.4 mmol/L (3-11); BUN 23 mg/dL (7-18); CO2 29.6 mmol/L (21.0-32.0); CREATININE 1.1 mg/dL (0.70-1.30); Chloride 102 mmol/L (98-107); Estimated GFR 72.67 (mL/min/1.73m2); Glucose 102 mg/dL (74-106); Potassium 4.5 mmol/L (3.5-5.1); Sodium 137 mmol/L (136-145)
== END 2024-05-14 07:46 | disposition home or self-care (01) ==
LOC: LBO 07:46
PROVIDERS: PCP Nurse Practitioner Family; Visit Provider Nurse Practitioner Family
DX: Z01.818 Encounter for other preprocedural examination (principal)
CPT/HCPCS: 36415; 80048; 85027; 82040

== ENCOUNTER 2024-05-15 01:02 | Outpatient (CLI) | payer MEDICARE, SELFPAY ==
--- NOTE | 2024-05-15 07:25 | DI.NM_ITS ---
APPROVED REPORT Exam: Pharmacologic Patient Location: Out-Patient Room/Bed: Stress Nurse: Suha Madrid RN Ordering Provider:KANDY VAZQUEZ, Contact Number: [phone] BMI: 30.01 Baseline Rhythm: Sinus Bradycardia, RBBB Indications: RBBB, LAFB on EKG for pre-op exa,. other chest pain, chest pressure Medical History Medical History: L hip replacement, arthritis, L inguinal hernia with repair, bradycardia, diverticul osis, PUD, GERD Cardiac Medications: None Allergies: NKA Cardiac Risk Factors: Family hx, former smoker Previous Cardiac Procedures: None Pretest Chest Pain Characteristics: None Exercise History: Physically active Physical Disabilities: R knee Lung Sounds: Clear to auscultation Heart Sounds: Bradycardia Stress Test Details Test: Pharmacologic stress was paired with low level exercise. Reason for pharmacologic stress test: physical limitation. Rest Isotope: Tc-99m Sestamibi. Dose: 10.0 Date: 05/15/2024 Injection Time: 1110 Stress Isotope: Tc-99m Sestamibi. Dose: 30.0 Date: 05/15/2024 Injection Time: 1323 HR Resting HR Supine: 51 bpm Max Heart Rate (APMHR): 151 bpm Resting HR Standin bpm Target HR (85% APMHR): 128 bpm Max HR Achieved: 117 bpm % of APMHR: 77 Recovery HR: 74 bpm BP Resting BP Supine: 140/78 mmHg Resting BP Standin/79 mmHg Max BP: 152/79 mmHg Recovery BP: 130/70 mmHg ECG Resting ECG: Sinus Bradycardia, RBBB Stress ECG: Sinus Tachycardia ST Change: Nondiagnostic low heart rate Arrhythmia: Occasional PAC's, rare PVC Recovery ECG: Sinus Rhythm Recovery ST Change: Nondiagnostic low heart rate Recovery Arrhythmia: Rare PAC's Clinical Stress Symptoms: None Angina Score: None Rate Pressure Product: [id number] Stress ECG Conclusion 1. Resting EKG showed a right bundle branch block 2. Patient underwent testing using low-level exercise and pharmacologic stress with regadenoson 3. Peak heart rate achieved was 77% of maximal predicted for age 4. The electrocardiographic portion of the test was nondiagnostic 5. See MPI report Stress Test Summary STAGE HR BP SpO2 Symptoms NOTES Supine 51 140/78 96% Standing 55 136/79 1 min post Lexiscan injection 88 150/84 93% 3 min post Lexiscan injection 79 152/79 94% 6 min post Lexiscan injection 74 130/70 92% MPI Conclusion Myocardial perfusion is normal. There is no ischemia or evidence of prior infarction Ejection fraction appears within the range of normal with normal wall motion
[2024-05-15] MEDS: Regadenoson 0.4 MG/5 ML SYR IVP (13:34)
== END 2024-05-15 01:22 ==
LOC: DI 01:03
PROVIDERS: PCP Nurse Practitioner Family; Visit Provider Internal Medicine Cardiovascular Disease
DX: R07.89 Other chest pain (principal); Z01.810 Encounter for preprocedural cardiovascular examination
CPT/HCPCS: 78452; 93016; 93018; 93017; J2785